=== PATIENT | female | born 1970 | race Caucasian/White ===

== ENCOUNTER → 2021-03-03 08:29 | Outpatient (CLI) | payer OTHER | END | disposition home or self-care (01) | LOC: LAB 08:29 | PROVIDERS: ATTEND Obstetrics & Gynecology | DX: E03.8 Other specified hypothyroidism (principal); I10 Essential (primary) hypertension; E78.49 Other hyperlipidemia; Z12.11 Encounter for screening for malignant neoplasm of colon; N30.00 Acute cystitis without hematuria; E83.51 Hypocalcemia; N95.8 Other specified menopausal and perimenopausal disorders ==

== ENCOUNTER 2024-07-25 09:29 | Outpatient (CLI) | payer OTHER | END 2024-07-25 09:34 | disposition home or self-care (01) | LOC: MAMO-SONO 09:29 | PROVIDERS: ATTEND Surgery | DX: N60.11 Diffuse cystic mastopathy of right breast (principal); N60.12 Diffuse cystic mastopathy of left breast ==

== ENCOUNTER 2025-06-12 08:00 | Outpatient (CLI) | payer OTHER ==
[2025-06-13 10:23] LABS: COVID-19 AG NEGATIVE (NEGATIVE)
== END 2025-06-12 13:41 | disposition home or self-care (01) ==
LOC: LAB 08:00
PROVIDERS: ATTEND Preventive Medicine Occupational Medicine
DX: J11.1 Influenza due to unidentified influenza virus with other respiratory manifestations (principal); Z20.828 Contact with and (suspected) exposure to other viral communicable diseases

== ENCOUNTER → 2025-10-02 | Outpatient (CLI) | payer OTHER ==
[2025-10-02 11:26] LABS: MYCOPLASMA PNEUMONIAE IGM NON REACTIVE (NO REACTIVE)
== END | disposition home or self-care (01) ==
LOC: LAB 09:20
DX: Z00.00 Encounter for general adult medical examination without abnormal findings (principal)